=== PATIENT | male | born 1970 | race Two or more races ===

== ENCOUNTER → 2024-12-20 | Outpatient (CLI) | payer MEDICAID, SELFPAY ==
--- NOTE | 2024-12-20 08:45 | XR_ITS ---
Examination: Ultrasound soft tissue hand TECHNIQUE: Grayscale sonographic images soft tissue left hand Date and time: December 20, 2024 0830 hours INDICATIONS: Palpable of left palm noticed 3 months ago FINDINGS: Soft tissue mass and adjacent mass in the distal palm 19 x 3 x 11 mm, 8 x 2 x 6 mm IMPRESSION: Soft tissue masses hand as above, recommend MRI hand pre and post contrast follow-up to exclude soft tissue tumors
== END | disposition home or self-care (01) ==
PROVIDERS: PCP Registered Nurse; Referring Provider Registered Nurse; Visit Provider Registered Nurse
DX: M79.642 Pain in left hand (principal)
CPT/HCPCS: 76882